=== PATIENT | female | born 1965 ===

== ENCOUNTER 2017-04-06 09:26 | Observation (INO) | payer OTHER ==
--- NOTE | 2017-04-06 10:17 | EDPHY ---
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 Valdez for MRI of her C-spine and has surgery planned later today. They had plan to operate yesterday however is her insurance did not approve. Her symptoms have worsened over the last 24 hours. She has been on pain medication and steroids past without significant improvement. She has some improvement in her paresthesias with gabapentin. She denies head injury. No fevers or recent illness. She saw Dr. Valdez today who noticed increased weakness in her triceps region. She has a known extrusion of C6-7 REVIEW OF SYSTEMS: Constitutional: denies: chills, fever, recent illness, recent injury EENTM: denies: blurred vision, double vision, nose congestion Respiratory: denies: cough, shortness of breath Cardiac: denies: chest pain, irregular heart rate, lightheadedness, palpitations Gastrointestinal/Abdominal: denies: abdominal pain, diarrhea, nausea, vomiting, blood streaked stools Genitourinary: denies: dysuria, frequency, hematuria, pain Musculoskeletal: See HPI Skin: denies: lesions, rash, jaundice, bruising Neurological: denies: headache, numbness, paresthesia, tingling, dizziness, weakness Hematologic/Lymphatic: denies: blood clots, easy bleeding, easy bruising Immunologic/allergic: denies: HIV/AIDS, transplant EXAM: GENERAL: Well-appearing, well-nourished and in no acute distress. HEAD: Atraumatic, normocephalic. EYES: Pupils equal round and reactive to light, extraocular movements intact, sclera anicteric, conjunctiva are normal. ENT: TMs normal, nares patent, oropharynx clear without exudates. Moist mucous membranes. NECK: Normal range of motion, supple without lymphadenopathy or JVD. LUNGS: Breath sounds clear to auscultation bilaterally and equal. No wheezes rales or rhonchi. HEART: Regular rate and rhythm without murmurs, rubs or gallops. ABDOMEN: Soft, nontender, normoactive bowel sounds. No guarding, no rebound. No masses appreciated. BACK: No CVA tenderness, no spinal tenderness, step-offs or deformities EXTREMITIES: Normal range of motion, no pitting or edema. No clubbing or cyanosis. NEUROLOGICAL: Cranial nerves II through XII grossly intact. Normal speech, normal gait. 5/5 strength, normal movement in all extremities, normal sensation PSYCH: Normal mood, normal affect. SKIN: Warm, dry, normal turgor, no visible rashes or lesions. Source: Patient Exam Limitations: No limitations - Personal History LMP (Females 10-55): 15-21 Days Ago Current Tetanus Diphtheria and Acellular Pertussis (TDAP): Yes - Medical/Surgical History Hx Asthma: No Hx Chronic Respiratory Disease: No Hx Diabetes: No Hx Cardiac Disease: No Hx Renal Disease: No Hx Cirrhosis: No Hx Alcoholism: No Other PMH: healthy - Family History Significant Family History: No pertinent family hx - Social History Smoking Status: Never smoked Alcohol Use: Sober Drug Use: None Constitutional: Initial Vital Signs Temperature (C) 36.4 C 04/06/17 09:35 Heart Rate 69 04/06/17 09:35 Respiratory Rate 16 04/06/17 09:35 Blood Pressure 164/119 H 04/06/17 09:35 O2 Sat (%) 97 04/06/17 09:35 O2 Delivery Mode Room Air Allergies/Adverse Reactions: No Known Allergies Allergy (Unverified 04/06/17 09:39) Home Medications: Medication Instructions Recorded FLUoxetine [Prozac 20 MG (*)] 20 mg PO DAILY 04/06/17 Acetaminophen [Tylenol ES 500 mg 1,000 mg PO Q8HRS tab 04/07/17 (*)] Diazepam [Valium 5 MG (*)] 2.5 - 5 mg PO Q6HRS PRN #20 tab 04/07/17 Ferrous Sulfate [Ferrous Sulf 325 325 mg PO DAILY 04/07/17 MG (*)] Herbals/Supplements -Info Only 1 ea PO DAILY 04/07/17 LORazepam [Ativan (*)] 1 mg PO DAILY PRN 04/07/17 Methocarbamol [Robaxin 750 mg (*)] 750 mg PO QID PRN #50 tab 04/07/17 Progesterone, Micronized 200 mg PO DAILY 04/07/17 [Progesterone] Sennosides/Docusate Sodium 1 - 2 tab PO BID #20 tab 04/07/17 [Senokot-S] oxyCODONE IR [Oxycodone Ir (*)] 5 - 10 mg PO Q4HRS PRN #60 tab 04/07/17 Medical Decision Making ED Course/Re-evaluation: 11:20 a.m. the patient has been seen by Neurosurgery. They will take her to the OR. They do not want to repeat the MRI at the patient's request. The patient will likely be discharged postoperatively and will not require bed. Differential Diagnosis: Partial list of the Differential diagnosis considered include but were not limited to; disc bulge, radiculopathy and although unlikely based on the history and physical exam, I also considered infection, fracture,. - Data Points Laboratory Results: Laboratory Results 04/06/17 10:28 04/06/17 10:28 Medications Given: Discontinued Medications Acetaminophen (Tylenol) 1,000 mg PO Q8HRS [facility] Stop: 10/03/17 21:59 Last Admin: 04/07/17 05:41 Dose: 1,000 mg Bacitracin (Bacitracin Syringe) Confirm Administered Dose 100,000 units IRR .STK -MED ONE Stop: 04/06/17 14:18 Last Admin: 04/06/17 16:45 Dose: 100,000 units Bupivacaine HCl (Sensorcaine 0.25% Sdv) Confirm Administered Dose 30 ml .ROUTE .STK-MED ONE Stop: 04/06/17 14:18 Last Admin: 04/06/17 16:45 Dose: 30 ml Chlorhexidine Gluconate (Hibiclens) Confirm Administered Dose 1 btl TP .STK-MED ONE Stop: 04/06/17 14:18 Last Admin: 04/06/17 17:00 Dose: 1 btl Diazepam (Valium Injection) 5 mg IVP Q6HRS PRN PRN Reason: Anxiety, Unable to Take PO Stop: 10/03/17 14:36 Last Admin: 04/06/17 19:33 Dose: 5 mg Diazepam (Valium) 5 mg PO Q6HRS PRN PRN Reason: Anxiety, Able to Take PO Stop: 10/04/17 08:10 Last Admin: 04/07/17 09:59 Dose: 2.5 mg Epinephrine HCl (Epinephrine) Confirm Administered Dose 1 mg .ROUTE .STK-MED ONE Stop: 04/06/17 14:18 Last Admin: 04/06/17 16:45 Dose: 1 mg Famotidine (Pepcid) 20 mg PO BID [facility] Stop: 10/03/17 20:59 Last Admin: 04/07/17 10:00 Dose: 20 mg Fentanyl (Sublimaze) 25 - 100 mcg IVP Q5M PRN PRN Reason: PACU, IMMEDIATE Pain control Stop: 04/06/17 19:16 Last Admin: 04/06/17 19:55 Dose: 50 mcg Fluoxetine HCl (Prozac) 20 mg PO DAILY [facility] Stop: 10/04/17 08:59 Last Admin: 04/07/17 10:00 Dose: 20 mg Gabapentin (Neurontin) 300 mg PO TID [facility] Stop: 10/03/17 21:59 Last Admin: 04/07/17 09:59 Dose: 300 mg Hydralazine HCl (Apresoline) 5 mg IVP EDNOW ONE Stop: 04/06/17 12:16 Last Admin: 04/06/17 12:27 Dose: 5 mg Hydralazine HCl (Apresoline) 5 mg IVP EDNOW ONE Stop: 04/06/17 13:23 Last Admin: 04/06/17 13:26 Dose: 5 mg Hydromorphone HCl (Dilaudid) 0.2 mg IVP Q2HRS PRN PRN Reason: Pain, Severe Unable to Take PO Stop: 04/16/17 12:14 Last Admin: 04/06/17 12:27 Dose: 0.2 mg Hydromorphone HCl (Dilaudid) 0.4 mg IVP Q2HRS PRN PRN Reason: Pain, Severe Unable to Take PO Stop: 04/16/17 13:46 Last Admin: 04/06/17 13:53 Dose: 0.4 mg Hydromorphone HCl (Dilaudid) 0.1 - 0.4 mg IVP Q10M PRN PRN Reason: PACU, PAIN Stop: 04/06/17 19:16 Last Admin: 04/06/17 20:31 Dose: 0.4 mg Cefazolin Sodium/Dextrose (Ancef 2 Gm (Premix)) 100 mls @ 200 mls/hr IV ONCALL ONE PRN Reason: Protocol Stop: 04/06/17 16:29 Last Admin: 04/06/17 16:38 Dose: 100 mls Cefazolin Sodium/Dextrose (Ancef 2 Gm (Premix)) 100 mls @ 200 mls/hr IV Q8H [facility] PRN Reason: Protocol Stop: 04/06/17 08:59 Last Admin: 04/07/17 00:25 Dose: Not Given Cefazolin Sodium/Dextrose (Ancef 2 Gm (Premix)) 100 mls @ 200 mls/hr IV Q8H [facility] PRN Reason: Protocol Stop: 04/07/17 08:59 Last Admin: 04/07/17 09:59 Dose: 100 mls Methocarbamol (Robaxin) 750 mg PO QID PRN PRN Reason: Spasms Stop: 10/03/17 19:00 Last Admin: 04/07/17 04:51 Dose: 750 mg Midazolam HCl (Versed) 2 mg IVP ONCALL ONE Stop: 04/06/17 16:26 Last Admin: 04/06/17 16:33 Dose: 2 mg Oxycodone HCl (Oxycodone Ir) 5 mg PO ONCE ONE Stop: 04/06/17 12:17 Last Admin: 04/06/17 14:49 Dose: 5 mg Oxycodone HCl (Oxycodone Ir) 5 - 10 mg PO Q4HRS PRN PRN Reason: Pain, Severe Able to Take PO Stop: 04/16/17 19:00 Last Admin: 04/07/17 10:00 Dose: 2.5 mg Senna/Docusate Sodium (Senokot-S) 1 - 2 tab PO BID [facility] PRN Reason: Protocol Stop: 10/03/17 20:59 Last Admin: 04/07/17 09:59 Dose: 2 tab Thrombin (Thrombin-Jmi) Confirm Administered Dose 5,000 unit TP .STK-MED ONE Stop: 04/06/17 14:18 Last Admin: 04/06/17 16:40 Dose: 5,000 unit Departure - Departure Disposition: To OP Cath/Surgery Clinical Impression: Cervical radiculopathy Condition: Good
[2017-04-06 10:36] LABS: % IMMATURE GRANULYOCYTES 0.4 % (0.0-1.1); ABSOLUTE IMMATURE GRANULOCYTES 0.03 10^3/uL (0.00-0.10); ADD DIFF? NO; ADD MORPH? NO; ADD SCAN? NO; ATYPICAL LYMPHOCYTE FLAG 10 (0-99); FRAGMENT RBC FLAG 0 (0-99); HEMATOCRIT 42.1 % (38.0-47.0); HEMOGLOBIN 15.1 g/dL (12.6-16.3); LEFT SHIFT FLG 0 (0-99); LIPEMIA HEMOLYSIS FLAG 90 (0-99); MEAN CELL HEMOGLOBIN 33.2 pg (27.9-34.1); MEAN CELL HEMOGLOBIN CONCENTR. 35.9 g/dL (32.4-36.7); MEAN CELL VOLUME 92.5 fL (81.5-99.8); MEAN PLATELET VOLUME 9.1 fL (8.7-11.7); PLATELET CLUMPS FLAG 0 (0-99); PLATELET COUNT 280 10^3/uL (150-400); RED BLOOD CELL COUNT 4.55 10^6/uL (4.18-5.33)
[2017-04-06 10:48] LABS: INR 1.02 (0.83-1.16); PROTIME(PATIENT) 13.3 SEC (12.0-15.0)
[2017-04-06 10:57] LABS: ANION GAP 11 mEq/L (8-16); CALCIUM 9.7 mg/dL (8.5-10.4); CARBON DIOXIDE 24 mEq/l (22-31); CHLORIDE 103 mEq/L (97-110); CREATININE 0.7 mg/dL (0.6-1.0); GLOMERULAR FILTRATION RATE > 60; GLUCOSE 90 mg/dL (70-100); POTASSIUM 4.1 mEq/L (3.5-5.2); SODIUM 138 mEq/L (134-144)
[2017-04-06] MEDS ORDERED: HYDROmorphONE/DILAUDID 1 MG/ML INJ IVP PRN ×2 (12:15→13:47)
[2017-04-06] MEDS ORDERED: hydrALAZINE 20 MG/ML VIAL IVP ONE ×2 (12:15→13:22)
[2017-04-06] MEDS ORDERED: HYDROmorphONE/DILAUDID 1 MG/ML INJ ONE ×3 (12:24→19:25)
[2017-04-06] MEDS ORDERED: hydrALAZINE 20 MG/ML VIAL ONE (12:25)
[2017-04-06] MEDS ORDERED: CEFAZOLIN 2 GM/DEXTROSE/100 ML BAG IV ONE (13:24)
[2017-04-06] MEDS: oxyCODONE IR 5 MG TAB PO ONE ×2 (14:05→14:49)
[2017-04-06] MEDS ORDERED: BACITRACIN 50,000 UNITS/10 ML SYR IRR ONE (14:17)
[2017-04-06] MEDS ORDERED: CHLORHEXIDINE GLUC HIBICLENS 118 ML BTL TP ONE (14:17)
[2017-04-06] MEDS ORDERED: THROMBIN (BOVINE) 5,000 UNIT VIAL TP ONE (14:17)
[2017-04-06] MEDS ORDERED: BUPIVACAINE 0.25% 30 ML SDV ONE (14:17)
--- NOTE | 2017-04-06 14:23 | GHP ---
[f rep st] HISTORY AND PHYSICAL DATE OF ADMISSION: 04/06/2017 CHIEF COMPLAINT: Right scapular pain and right arm weakness. 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 Her initial symptoms presented on March 13, and she describes them as being in her right scapula, right neck region that extends into her shoulder creating tingling into her right hand. She has tingling in her right thumb and index finger and has now, over the last day, just moved into her middle finger as well. Patient notes progressive weakness worsening in the last day and presented to the emergency room this morning for evaluation. REVIEW OF SYSTEMS: A 10-point review of systems was reviewed and negative aside from what was mentioned in the HPI. PAST MEDICAL HISTORY: Patient notes that she had weakness in her left shoulder in 2012, which she recovered from with physical therapy. PAST SURGICAL HISTORY: 1. October 2015, breast implant exchange. 2. October 2014, left cataract surgery. 3. April 2013, bilateral bunionectomy. 4. C-sections in 2004, 2006, 2009. 5. Myomectomy in October of 2003. 6. LASIK in 1999. 7. Breast augmentation in 1998. 8. Right breast biopsy x2 in 1998, which was found to be atypical findings. FAMILY HISTORY: Mother had post menopausal breast cancer diagnosed in 2000. Father has hypertension. Two maternal aunts positive for breast cancer. 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 She is a nonsmoker. She does not do drugs. She drinks 1 glass of red wine each night. MEDICATIONS: 1. Fluoxetine 20 mg each morning. 2. Progesterone 3. Gabapentin 300mg TID ALLERGIES: Patient has no drug allergies. She is allergic to white fish. PHYSICAL EXAMINATION: VITAL SIGNS: Blood pressure is 171/112. Heart rate is 64. Respiratory rate is 15. Oxygen saturations 97% on room air. Temperature is 36.4 degrees Celsius. HEENT: Head is normocephalic, atraumatic. Pupils are equal, round and reactive to light. EOMI is intact. Full visual pereyra by confrontation. Neck is soft, supple, right sided tenderness. Respiratory and cardiac: deferred. Genitourinary and rectal: deferred. Neurologic: The patient is awake, alert, oriented to name, place, location and time. Memory is intact to immediate past and current events. Speech: No aphasia or dysphonia. Cranial nerves 2-12 are grossly intact. Motor: 5/5 strength in bilateral lower extremity muscle groups to include iliopsoas, quadriceps, hamstring, plantar flexion and extension, EHL testing. 5/5 motor strength in bilateral upper extremities aside from right triceps 3+/5. Other muscle groups 5/5 including deltoids, biceps, left triceps, brachioradialis, wrist flexion and extension, nursery hand, intrinsic fingers. Sensation intact to light touch throughout all dermatomal distributions in bilateral lower extremities. Reflexes: Biceps, triceps, brachioradialis, knee jerk and ankle jerk 2+/4. Toes are downgoing bilaterally. Bello's negative bilaterally. LAB RESULTS: White blood cell count is 7.19, hemoglobin 15.1, hematocrit is 42.1, platelets are 280. PT 13.3, INR 1.02. PTT is 27. Sodium is 138, potassium 4.1, BUN is 14, creatinine 0.7, glucose is 90. DIAGNOSTICS: Patient has an MRI of the cervical spine from an outside source, which demonstrates degenerative disk disease at C3-4 and C5-6 as well as a very large right C6-7 herniated nucleus pulposus. ASSESSMENT AND PLAN: Patient is a healthy 51-year-old who presented to the emergency room this morning with worsening progressive weakness of her right triceps. She has a massive disc herniation at C6-7 measuring 8mm into the spinal canal completely crushing the nerve. She is having severe right scapular pain and is unable to control pain with pain medications and anti- inflammatories. Patient is currently taking gabapentin 300 mg t.i.d., which is offering no relief of symptoms. The severity of her pain is contributing to hypertensive issues. Blood pressure in the emergency room is 171/112. We will place the patient on the operating room schedule for an anterior cervical diskectomy and fusion of C6-7. We will get this done today and expedite her surgery in an effort to stop the progression of her weakness of the right arm. We will order hydralazine p.r.n. for hypertension at this time, as well as pain medications. Consents were reviewed, and risks and benefits were reviewed with patient and friend at the bedside. Keep the patient n.p.o. and plan for surgery later today. Patient was seen and examined by myself and Dr. Lupillo Valdez at 11:45 a.m. in the Emergency Room. /[id number]/MOD Patient was seen last week with profound tricep weakness and a huge right HNP at C67 measuring 8mm into the spinal canal. We attempted to get insurance approval through the normal processes of her insurance company but the surgery was denied by the biomedical engineering aide and conservative treatment was suggested. We immediately filed an appeal on tuesday when the surgery was denied and despite repeated attempts to reach the insurance company yesterday and being given multiple phone numbers that were incorrect by people at the company we were unable to reach them and we left messages beginning at 8am when they opened and througout the day into the evening. None of our calls were returned. Last night I called the patient and her pain was worsening even though it had already been nearly unbearable and this morning her sensory loss was becoming more dense in the right arm. We suggested that she come to the ER today and indeed her clinical condition had worsened and her tricep weakness was worse. She was placed on the add on emergency schedule today at the hospital and the hospital has gone on divert now because of a lack of beds. There were over 10 addons this evening. We will proceed as soon as the OR allows even after hours to do this emergency case. It is our hope that the loss of function in her arm returns. YANI
[2017-04-06] MEDS ORDERED: oxyCODONE IR 5 MG TAB ONE (14:47)
[2017-04-06] MEDS: DIAZEPAM 10 MG/2 ML SYR IVP PRN ×2 (14:49→19:33)
[2017-04-06] MEDS ORDERED: ceFAZolin 2 GM/DEXTROSE 100 ML IV ONE (16:00)
[2017-04-06] MEDS ORDERED: MIDAZOLAM 2 MG/2 ML VIAL IVP ONE (16:25)
--- NOTE | 2017-04-06 16:26 | PDANEPAE ---
ANE History of Present Illness Patient presents for 1-level ACDF ANE Past Medical History - Pulmonary History Hx Sleep Apnea: No - Endocrine History Hx Diabetes: No ANE Review of Systems Review of Systems: ANE Patient History - Allergies Allergies/Adverse Reactions: No Known Allergies Allergy (Unverified 04/06/17 09:39) - Home Medications Home medications: home medication list seen and reviewed Home Medications: FLUoxetine [PROzac] 20 mg PO 04/06/17 [Last Taken Unknown] Gabapentin [Neurontin 300 MG (*)] 300 mg PO TID 04/06/17 [Last Taken Unknown] oxyCODONE/APAP 5/325 [Percocet 5/325 (*)] 1 tab PO 04/06/17 [Last Taken Unknown] - NPO status NPO Status: no food or drink >8 hours NPO Since - Liquids (Date): 04/06/17 NPO Since - Liquids (Time): 04:00 NPO Since - Solids (Date): 04/05/17 NPO Since - Solids (Time): 20:00 - Anes Hx Anes Hx: no prior problems - Smoking Hx Smoking Status: Never smoked - Alcohol Use Alcohol Use: Sober ANE Labs/Vital Signs - Labs Result Diagrams: 04/06/17 10:28 04/06/17 10:28 - Vital Signs Blood Pressure: 144/99 Heart Rate: 75 Respiratory Rate: 14 O2 Sat (%): 96 Height: 157.48 cm Weight: 59.874 kg ANE Physical Exam - Airway Mallampati Score: Class 2 - Pulmonary Pulmonary: no respiratory distress, no rales or rhonchi - Cardiovascular Cardiovascular: regular rate and rhythym - ASA Status ASA Status: II ANE Anesthesia Plan Anesthesia Plan: general endotracheal anesthesia (RBA discussed)
[2017-04-06] MEDS ORDERED: REMIFENTANIL HCL 1 MG VIAL ONE ×2 (16:29)
[2017-04-06] MEDS ORDERED: PROPOFOL 200 MG/20 ML VIAL ONE (16:29)
[2017-04-06] MEDS ORDERED: fentaNYL 100 MCG/2 ML INJ ONE ×3 (16:29→19:24)
[2017-04-06] MEDS ORDERED: PROPOFOL/EMULSION 500 MG/50 ML BOTTLE IV ONE (16:30)
--- NOTE | 2017-04-06 16:31 | PDHPUP ---
History & Physical Update H&P update statement: This history and physical update is based on an assessment of the patient which was completed after admission or registration (within 24 hours), but prior to the surgery/procedure. H&P update: H&P reviewed & patient examined, no change in patient's condition since H&P completed
[2017-04-06] MEDS ORDERED: MIDAZOLAM 2 MG/2 ML VIAL ONE (16:32)
[2017-04-06] MEDS ORDERED: fentaNYL 100 MCG/2 ML INJ IVP PRN (18:16)
[2017-04-06] MEDS ORDERED: OXYCODONE/APAP 5/325 TAB PO PRN (18:16)
[2017-04-06] MEDS ORDERED: HYDROCODONE/APAP 5/325 TAB PO PRN (18:16)
[2017-04-06] MEDS ORDERED: ONDANSETRON 4 MG/2 ML VIAL IVP PRN (18:16)
[2017-04-06] MEDS ORDERED: LR 500 ML IV PRN (18:16)
[2017-04-06] MEDS ORDERED: NALOXONE HCL 0.4 MG/ML INJ IVP PRN (18:16)
--- NOTE | 2017-04-06 19:00 | SOAPPROG ---
SOAP Progress Note Assessment/Plan: Post Op Visit: S: Awake and alert, Pt with expected neck pain O: AFVSS/PERRLA/EOMI no droop CN 2-12 grossly intact +lt touch 5/5 BLE 5/5 BUE = except right tri at 3+->4-/5 neck soft and supple CDI A/P: 51 yo female that is s/p ACDF C6/7 -orders in place -call with any questions or concerns -pt to be obs overnight due to fact that she lives 3 hrs away and need to watch for STS/swallowing -pt understands and agrees 04/06/17 18:57 Objective: Vital Signs Temp Pulse Resp BP Pulse Ox 36.4 C 75 14 144/99 H 96 04/06/17 15:42 04/06/17 16:26 04/06/17 16:26 04/06/17 16:26 04/06/17 16:26 PT 13.3 SEC (12.0-15.0) 04/06/17 10:28 INR 1.02 (0.83-1.16) 04/06/17 10:28 ICD10 Worksheet Patient Problems: Problems Problem Status Onset Arthrodesis status Acute Cervical radiculopathy Acute Cervicalgia Acute - ICD10 Problem Qualifiers (1) Cervicalgia (2) Arthrodesis status
[2017-04-06] MEDS ORDERED: LACTULOSE 20 GM/30 ML UDCUP PO PRN (19:01)
[2017-04-06] MEDS ORDERED: ONDANSETRON DISINTEGRATING 4 MG TAB PO PRN (19:01)
[2017-04-06] MEDS ORDERED: diphenhydrAMINE 25 MG CAP PO PRN (19:01)
[2017-04-06] MEDS ORDERED: BISACODYL 10 MG SUPP PR PRN (19:01)
[2017-04-06] MEDS ORDERED: MAGNESIUM HYDROXIDE 30 ML UDCUP PO PRN (19:01)
[2017-04-06] MEDS ORDERED: POLYETHYLENE GLYCOL 3350 17 GM PKT PO PRN (19:01)
[2017-04-06] MEDS: HYDROmorphONE/DILAUDID 1 MG/ML INJ IVP PRN ×4 (19:12→20:31)
[2017-04-06] MEDS ORDERED: NS W/ 20 KCl/L 1,000 ML IV SCH (19:15)
[2017-04-06] MEDS ORDERED: DIAZEPAM 10 MG/2 ML SYR IVP PRN (19:22)
--- NOTE | 2017-04-06 19:24 | POSTANESTH ---
Post Anesthetic Evaluation Cardiovascular Status: Normal, Stable Respiratory Status: Similar to Pre-op Cond. Level of Consciousness/Mental Status: Alert and Oriented Pain Control: Inadeq, Add Tx Required Nausea/Vomiting Control: Adequate, Prn Tx Ordered Complications Possibly Related to Anesthesia: None Noted (treating pain, otherwise unremarkable recovery)
[2017-04-06] MEDS ORDERED: DIAZEPAM 10 MG/2 ML SYR ONE (19:26)
--- NOTE | 2017-04-06 20:54 | GOP ---
[f rep st] OPERATIVE REPORT DATE OF OPERATION: 04/06/2017 SURGEON: Lupillo Valdez MD NEUROSURGEON: Lupillo Valdez MD. SERVICE PROVIDER: Rao Iniguez PA-C. PREOPERATIVE DIAGNOSIS: Herniated cervical disc, C6-7 with loss of function in the right arm in the C7 and even C8 distributions. POSTOPERATIVE DIAGNOSIS: Herniated cervical disc, C6-7 with loss of function in the right arm in the C7 and even C8 distributions. PROCEDURE PERFORMED: Anterior cervical diskectomy with arthrodesis and decompression, C6-7; placemen t of biomechanical intervertebral device, C6-7; same incision bone graft harvest; anterior cervical i nstrumentation C6-7 ([id number], [id number], [id number], [id number], [id number]). FINDINGS: ESTIMATED BLOOD LOSS: 10 cc. 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 She was posted for an ou tpatient anterior cervical discectomy at C6-7 that was to be done yesterday but unfortunately, the pa dical director of the insurance company did not think that surgery was appropriate despite the loss o f function that was documented in her right arm. We even used the term profound loss of triceps func tion. The rejection came Tuesday, the day before surgery was scheduled yesterday, and her clinical co ndition deteriorated even over that time frame. She was losing hand intrinsic function and was havin g difficulty writing and her triceps was indeed weaker. She was developing more dense numbness in th e C7 distribution and her pain was unrelenting and getting worse; if that was even imaginable. I ins tructed her to come to the emergency room today, and indeed she was weaker on physical exam, and maikel use of her loss of function she was admitted directly from the emergency room to the hospital for [facility]. The risk of permanent nerve injury, esophageal injury, carotid injury, recurrent laryngeal ner ve injury, dysphagia, pseudoarthrosis, adjacent segment disease was discussed. She knew there was ri sk of future surgery. She knew there was a risk that surgery may fail to alleviate her symptoms. sophie did want to proceed despite these risks. We had made every attempt to reach her insurance company beginning Tuesday at the same time of the rejection. We immediately called them back. The family and my office spent all day long trying to reach the insurance company yesterday to get approval for thi s surgery and we did not receive a call. My office notified me as the patient was rolling into the o perating room that the medical billing specialist at the insurance company had called just today, but the patie nt I believe was actually already under general anesthesia, and I was unable to discuss this with the medical billing specialist. It was a move point given the patient's worsening condition and the emergency sta tus of the surgery. DESCRIPTION OF PROCEDURE: The patient was taken to the operating room, placed in supine position. G eneral anesthesia was begun. A midline shoulder roll was placed. Her neck was kept in the neutral p osition, locked but gently extended. Her arms were tucked at her side. Her neck was sterilely prepp ed and draped in usual fashion. A transverse incision was made on the left side of the neck. The jimenez bcutaneous tissue was dissected with Metzenbaum scissors. We used sharp dissection all way through f ull thickness through the skin, and then we opened the platysma only with a Bovie cautery. We then p erformed sharp and blunt dissection down to the prevertebral space and this was relatively straightfo rward. No vessels or structures were divided to reach the prevertebral space. A localizing x-ray wa s taken. We mobilized the longus colli muscles off the spine at C6-7. There were some ventral osteo phytes that were relatively small at C6-7, these were removed. A distraction pin was placed in the C 6-C7 vertebral body. We distracted. We carefully removed the entire disc and drilled and harvested subchondral bone for autologous grafting purposes. We chose a 7 mm lordotic PEEK intervertebral abril ce and packed it with the autologous harvested bone dust and was fashioned to fit in the space. We t camilla carefully opened the posterior and longitudinal ligament on the patient's left-hand side, decompr essed the thecal sac and began working our way into the foramen for the C7 root. As we worked our wa y to the foramen all the way to the pedicle and beyond the pedicle of C7 out in the neural foramen, t here was absolutely huge intraforaminal disk herniation present crushing the C7 root, but it also had extruded inferiorly into the lateral recess of the spinal canal adjacent to the C7 pedicle below the level of the disc space. There was an absolutely huge fragment pushing on the nerve root entry zone where the C8 nerve root was present, explaining the problems that the patient was having with her lezama ndwriting. We removed this large fragment. The thecal sac nicely released. There was really no sig nificant bleeding. The foramen was now wide open for the exiting C7 root. We then took our implant, inserted it at C6-7 and then chose a 19 mm Zevo plate, placed a single 13 mm screw at C6, a single s crew at C7 and they were all locked and verified with the people in the room. A final x-ray was take n. The screws were well-seated in the C6-C7 vertebral bodies without violation of the surrounding en dplates. Our intervertebral device was perfectly positioned as well. We achieved meticulous hemosta sis and closed the incision in multiple layers using Vicryl sutures. Steri-Strips were applied to th e skin. The patient was reversed from anesthesia, extubated, and transferred to recovery room in sta ble condition. There were no complications. COMPLICATIONS: None. INSTRUMENTATION USED: Medtronic 19 mm Zevo plate with 3.5 x 13 mm screws, and a 7 x 14 x 11 anatomic PTC titanium coated PEEK intervertebral device. COMPLICATIONS: None. /[id number]/MODL
[2017-04-06] MEDS: SENNOSIDES/DOCUSATE SODIUM TAB PO SCH (21:58)
[2017-04-06] MEDS: FAMOTIDINE 20 MG TAB PO SCH (21:58)
[2017-04-06] MEDS: GABAPENTIN 300 MG CAP PO SCH (21:58)
[2017-04-06] MEDS: ACETAMINOPHEN 500 MG TAB PO SCH (21:58)
[2017-04-07] MEDS: ceFAZolin 2 GM/DEXTROSE 100 ML IV SCH ×4 (00:24→09:59)
[2017-04-07] MEDS: METHOCARBAMOL 750 MG TAB PO PRN ×2 (00:37→04:51)
[2017-04-07] MEDS: oxyCODONE IR 5 MG TAB PO PRN ×3 (00:37→10:00)
[2017-04-07] MEDS: ACETAMINOPHEN 500 MG TAB PO SCH (05:41)
--- NOTE | 2017-04-07 08:10 | NEUSURGPN ---
Date of Surgery: 04/06/17 Post Op Day: 1 Assessment/Plan: Assessment: 51 yo female that is s/p ACDF C6/7 POD #1 Plan: -s/p C spine fusion-pt states some neck pain -RUE strength better -collar in place -PT/OT ordered -post op xrays pending -pt seen by Dr Valdez as well -call with any questions or concerns -orders in place -pt understands and agrees -dc later this am 04/06/17 18:57 Subjective: Awake and alert. NAD. Eating/drinking and voiding. No f/c/n/v/d. No lezama/cp/ sob/abd or gu complaints. Objective: AFVSS/PERRLA/EOMI no droop CN 2-12 grossly intact +lt touch 5/5 BLE 5/5 BUE = except right tri at 4-/5 neck soft and supple CDI Neuro Check Frequency: per routine Urinary Catheter in Place: No - Physician Discussed Patient with Dr.: José Miguel Patient Seen by .: José Miguel Neurosurgery Physical Exam - Vitals, I&O, Labs I and O 04/06/17 04/07/17 04/08/17 05:59 05:59 05:59 Intake Total 1525 Output Total 20 Balance 1505 Weight 59.874 kg Intake: Oral (ml) 25 IV Intake (ml) 1500 Output: Estimated Blood Loss (ml) 20 Other: Intake Quantity Yes Sufficient Number of Voids Toilet 1 Vital Signs Temp Pulse Resp BP Pulse Ox 36.2 C 72 16 129/83 H 98 04/07/17 04:40 04/07/17 04:40 04/07/17 04:40 04/07/17 04:40 04/07/17 06:38 ICD10 Worksheet Patient Problems: Problems Problem Status Onset Arthrodesis status Acute Cervical radiculopathy Acute Cervicalgia Acute - ICD10 Problem Qualifiers (1) Cervicalgia (2) Arthrodesis status
[2017-04-07] MEDS ORDERED: DIAZEPAM 5 MG TAB PO PRN (08:11)
[2017-04-07] MEDS ORDERED: FLUoxetine 20 MG CAP PO SCH (09:00)
[2017-04-07] MEDS: SENNOSIDES/DOCUSATE SODIUM TAB PO SCH (09:59)
[2017-04-07] MEDS: GABAPENTIN 300 MG CAP PO SCH (09:59)
[2017-04-07] MEDS: FAMOTIDINE 20 MG TAB PO SCH (10:00)
[2017-04-07 10:44] VITALS: BP 157/94; PULSE 74; RESP 18; TEMP 98.1; O2SAT 94
--- NOTE | 2017-04-07 11:35 | ASDISCHSUM ---
Discharge Information Plan Status:Home with Home Health Medically Cleared to Leave:04/07/2017 Discharge Date:04/07/2017 11:05 AM CM D/C Disposition:Home, Routine, Self-Care ADT D/C Disposition:Home, Routine, Self-Care Projected Discharge Date:04/07/2017 11:05 AM Transportation at D/C:Family Discharge Delay Reason: Follow-Up Date:04/07/2017 11:05 AM Discharge Slot: Final Diagnosis: Placement Information Patient Contact Information Contact Name:CONNIE Relationship: Address:[address] City:[place] Alternate Phone: State/Zip Code:[place] [address] Email: Financial Information Financial Class:HMO and PPO Plans Primary Plan Desc:[employer] PPO POS HMO SIG ADM Primary Plan Number:[id number] Secondary Plan Desc: Secondary Plan Number: Assessment Information Intervention Information
[2017-04-09] MEDS ORDERED: ENOXAPARIN 40 MG/0.4 ML SYR SC SCH (09:00)
== END 2017-04-07 11:05 | disposition home or self-care (01) ==
LOC: FSGY 13:18 → F3N 17:19 → FOB 22:10
PROVIDERS: ADMIT Neurological Surgery; ATTEND Neurological Surgery
PROC: 0RH104Z Insertion of Internal Fixation Device into Cervical Vertebral Joint, Open Approach (ICD-10-PCS; principal; 2017-04-06 17:00)
PROC: 0RG10A0 Fusion of Cervical Vertebral Joint with Interbody Fusion Device, Anterior Approach, Anterior Column, Open Approach (ICD-10-PCS; principal; 2017-04-06 17:00)
PROC: 0RG1070 Fusion of Cervical Vertebral Joint with Autologous Tissue Substitute, Anterior Approach, Anterior Column, Open Approach (ICD-10-PCS; principal; 2017-04-06 17:00)
DX: M54.12 Radiculopathy, cervical region (principal); M50.31 Other cervical disc degeneration, high cervical region; M50.223 Other cervical disc displacement at C6-C7 level; Z80.3 Family history of malignant neoplasm of breast
CPT/HCPCS: 20936; 22551; 22845; 22853; 69990; 72040; 76001; 96374; 96375; 96376; 97161; 99285; G0378; C1713; J0171; J0360; J0690; J1170; J2250; J2704; J3010